=== PATIENT | male | born 1975 | race Caucasian/White ===

== ENCOUNTER → 2019-03-06 08:09 | Outpatient (CLI) | payer OTHER, SELFPAY ==
--- NOTE | 2019-03-06 08:15 | XR_ITS ---
PROCEDURE: XR KNEE RT 4V CLINICAL INDICATION: RT ANTERIOR KNEE PAIN COMPARISON: No exams were available for comparison FINDINGS: No bony or joint abnormality. No fracture or dislocation. IMPRESSION: Negative right knee Dictated by: Elign Singletary MD 03/06/2019 18:47 Signed by: <Electronically signed by Elgin Singletary MD in [place]> 03/06/2019 18:47
== END ==
PROVIDERS: PCP Family Medicine; Visit Provider Family Medicine
DX: M25.561 Pain in right knee (principal)
CPT/HCPCS: 73564

== ENCOUNTER → 2022-10-24 09:11 | Outpatient (CLI) | payer OTHER, SELFPAY ==
--- NOTE | 2022-10-24 09:12 | US_ITS ---
FINAL REPORT CLINICAL HISTORY: pulsation in abdomen FINDINGS: Sonographic images were obtained of the abdominal aorta. The abdominal aorta measures up to 2.4 cm in greatest dimensions. The common iliac arteries are within normal limits. IMPRESSION: No evidence of abdominal aortic aneurysm. Reviewed, Interpreted and Dictated by Willy Payan MD Transcribed by Alli Briseno Authenticated and [facility]
== END ==
PROVIDERS: PCP Physician Assistant; Visit Provider Physician Assistant
DX: R09.89 Other specified symptoms and signs involving the circulatory and respiratory systems (principal)
CPT/HCPCS: 76705

== ENCOUNTER → 2022-11-29 13:24 | Outpatient (POV) | payer OTHER, SELFPAY | PROVIDERS: Visit Provider Dermatology | DX: Z00.00 Encounter for general adult medical examination without abnormal findings (principal) ==

== ENCOUNTER → 2023-04-12 10:08 | Outpatient (CLI) | payer OTHER, SELFPAY ==
[2023-03-22 14:06] LABS: Basophils # 0.1 K/mm3 (0-0.2); Basophils % 0.6 % (0.1-2.0); Eosinophils # 0.4 K/mm3 (0.0-0.4); Eosinophils % 4.7 % (0.1-12.0); Lymphocytes # 2.1 K/mm3 (0.7-4.5); Lymphocytes % 26.5 % (10-50); Mean Corpuscular Hemoglobin 29.2 pg (27.0-31.2); Mean Platelet Volume 8.8 fl (7.4-10.4); Monocytes # 0.6 K/mm3 (0.1-1.0); Neutrophils # 4.8 K/mm3 (1.8-7.8); Neutrophils % 61.1 % (37.0-80.0); Platelet Count 347 K/mm3 (142-424); Red Blood Count 5.81 M/mm3 (4.60-6.20); Red Cell Distribution Width 13.8 % (11.5-17.5); White Blood Count 7.9 K/mm3 (4.8-10.8)
[2023-03-22 14:23] LABS: Alanine Aminotransferase 50 U/L (12-78); Albumin Level 4.7 g/dl (3.5-5.0); Albumin/Globulin Ratio 1.6 (1.1-1.8); Alkaline Phosphatase 105 U/L (38-126); Anion Gap 16.1 mEq/L (5-15); Aspartate Amino Transferase 38 U/L (17-59); Blood Urea Nitrogen 12 mg/dl (9-20); Calcium 9.2 mg/dl (8.4-10.2); Carbon Dioxide 25 mmol/L (22.0-30.0); Chloride 102 mmol/L (98-107); Chol/HDL Ratio 5.4 (1-3.5); Cholesterol 205 mg/dl (140-200); Estimated Glomerular Filt Rate 72 ml/min (>60); GFR (African American) 87 ML/MIN (>60); Globulin 2.9 g/dL (1.3-3.2); Glucose 102 mg/dl (74-100); HDL Cholesterol 38 mg/dl (40-60); Potassium 4.1 mmoL/L (3.5-5.1); Sodium 139 mmol/L (136-145); Total Protein,Serum 7.6 g/dl (6.3-8.2); Triglycerides 145 mg/dl (30-150); VLDL Cholesterol 29 mg/dL (0-40)
[2023-03-22 14:35] LABS: Direct LDL Cholesterol 127.21 mg/dL (100-129)
[2023-03-22 14:40] LABS: 25-OH Vitamin D, Total 34.1 ng/mL (30-100)
[2023-03-22 14:43] LABS: T4 (Thyroxine) 7.4 ug/dl (5.53-11.0)
[2023-03-22 14:53] LABS: Prostate Specific Ag Screen 0.7 ng/ml (0.0-4.0)
[2023-03-22 14:57] LABS: Thyroid Stimulating Hormone 2.56 uIU/mL (0.465-4.68)
[2023-04-01 18:52] LABS: Free Testosterone (Direct) 4.9 pg/mL (6.8-21.5); Testosterone, Total, LC/MS 261.7 ng/dL (264.0-916.0)
== END ==
PROVIDERS: PCP Nurse Practitioner Family; Visit Provider Nurse Practitioner Family
DX: Z00.00 Encounter for general adult medical examination without abnormal findings (principal); Z68.32 Body mass index [BMI] 32.0-32.9, adult; E66.9 Obesity, unspecified; Z12.5 Encounter for screening for malignant neoplasm of prostate; Z79.899 Other long term (current) drug therapy
CPT/HCPCS: 80053; 80061; 82306; 84436; 84443; 85025; G0103

== ENCOUNTER 2023-05-25 11:51 | Day surgery (SDC) | payer OTHER, SELFPAY ==
[2023-05-17 14:57] VITALS: BMI 32.5
[2023-05-25 12:04] VITALS: BP 152/101; PULSE 72; RESP 16; TEMP 36.1; O2SAT 97
--- NOTE | 2023-05-25 12:25 | P.PNANES_ITS ---
[facility] Disclaimer: The information contained in this section may have been updated after the patient was seen, as this information can be updated by other users. Medical History Hypertension Surgical History Hx of vasectomy Family History Other Family history of kidney cancer Family history of myocardial infarction Family history of stroke Social History Smoking Status: Never smoker alcohol intake: current substance use type: denies use current occupational status: employed Travel in the last 8 weeks: None [facility] [place] Anesthesia Checklist Patient Identification Patient Identification: Arm Band Structural Data Admitted From: Home Planned Operative Procedure/s: colonoscopy Consent for Planned Operative Procedure(s) Verified: Yes Verified Documents: Surgical Consent and History and Physical NPO Status Verified Time NPO: 00:00 Additional verifications Anesthesia Reactions: No Airway Assessment Mallampati Score:: Class II C-Spine Mobility Assessed: Yes TMJ Mobility Assessed: Yes Dentition: Good Dentition Neurological Assessment Level of Consciousness: Awake and Alert Anesthesia Plan Anesthesia Risk discussed: Yes Anesthesia Plan: Verified ASA Class: II Anesthesia Type: MAC
[2023-05-25 12:38] VITALS: O2SAT 97
--- NOTE | 2023-05-25 12:53 | HMH.SCOPE ---
Procedure: Date: 05/25/23 Patient Date of :: 1975 Procedure Performed:: Screening colonoscopy Indications:: Colon cancer screening Performing Provider:: Debbie Arcos MD Referring Provider:: Roger Ibrahim APRN Sedation:: Propofol Procedure:: After placing the patient in the left lateral decubitus position, the colonoscopy was gently inserted into the rectum and under direct visualization advanced to the cecum which was identified by transillumination in the right lower quadrant, identification of the ileocecal valve, appendiceal orifice, and cecal strap. Color, texture, mucosa, and anatomy of the colon were carefully examined with the scope. Findings:: Anal canal: normal Rectum: normal Sigmoid colon: normal without polyps or inflammatory changes Descending colon: normal without polyps or inflammatory changes Splenic flexure: normal Transverse colon: normal without polyps or inflammatory changes Hepatic flexure: normal Ascending colon: normal without polyps or inflammatory changes Cecum: normal Terminal ileum: not visualized Impression: Normal colonoscopy Recommendations:: Follow up examination in about TEN years or so, sooner if clinically indicated. Complications:: None Estimated blood obtained (mL): 0 Colonoscopy Component Colonoscopy Component Was a colonoscopy performed during today's procedure?: Yes Recommended follow up colonoscopy of at least 10 years?: Yes
[2023-05-25 12:55] VITALS: BP 98/66; PULSE 87; RESP 16; TEMP 36.1; O2SAT 93
[2023-05-25 13:05] VITALS: BP 91/64; PULSE 72; RESP 18; O2SAT 94
[2023-05-25 13:15] VITALS: BP 119/70; PULSE 80; RESP 18; O2SAT 97
[2023-05-25 13:25] VITALS: BP 113/76; PULSE 61; RESP 18; O2SAT 95
== END 2023-05-25 13:38 | disposition home or self-care (01) ==
PROVIDERS: PCP Nurse Practitioner Family; Visit Provider Internal Medicine Gastroenterology
PROC: 0DJD8ZZ Inspection of Lower Intestinal Tract, Via Natural or Artificial Opening Endoscopic (ICD-10-PCS; CPT 45378; principal; 2023-05-25 13:00)
DX: Z12.11 Encounter for screening for malignant neoplasm of colon (principal)
CPT/HCPCS: 45378

== ENCOUNTER → 2023-07-05 09:57 | Outpatient (CLI) | payer OTHER, SELFPAY ==
--- NOTE | 2023-07-05 10:06 | CT_ITS ---
FINAL REPORT TECHNIQUE: After the administration of IV contrast, axial images through the abdomen was performed by computed tomography. Sagittal and coronal reformatted images were obtained and reviewed. This study was performed with techniques to keep radiation doses as low as reasonably achievable (ALARA). Individualized dose reduction techniques using automated exposure control or adjustment of mA and/or kV according to the patient's size were employed. CLINICAL HISTORY: weight gain, liver issues FINDINGS: The lung bases are clear. There is moderate fatty infiltration of the liver. The gallbladder is contracted. There is a small sliding-type hiatal hernia. The liver, spleen, adrenals, and kidneys are unremarkable. There is no free fluid or adenopathy. IMPRESSION: Moderate fatty liver. Small hiatal hernia. Reviewed, Interpreted and Dictated by Willy Payan MD Transcribed by Lisbeth Quesada Authenticated and [facility]
== END ==
LOC: RAD 09:58
PROVIDERS: PCP Internal Medicine; Visit Provider Internal Medicine
DX: R10.9 Unspecified abdominal pain (principal); R63.5 Abnormal weight gain
CPT/HCPCS: 74150

== ENCOUNTER → 2023-07-05 14:35 | Outpatient (CLI) | payer OTHER, SELFPAY ==
[2023-07-05 12:19] LABS: Basophils % 0.5 % (0.1-2.0); Eosinophils # 0.5 K/mm3 (0.0-0.4); Eosinophils % 6.3 % (0.1-12.0); Hematocrit 49.3 % (42.0-52.0); Lymphocytes # 2.1 K/mm3 (0.7-4.5); Lymphocytes % 25.9 % (10-50); Mean Corpuscular HGB Conc 34.4 g/dL (31.8-35.4); Mean Corpuscular Hemoglobin 29.7 pg (27.0-31.2); Mean Corpuscular Volume 86.1 fl (80-94); Mean Platelet Volume 8.4 fl (7.4-10.4); Monocytes # 0.5 K/mm3 (0.1-1.0); Monocytes % 6.4 % (1.7-9.3); Neutrophils % 60.9 % (37.0-80.0); Platelet Count 299 K/mm3 (142-424); Red Blood Count 5.72 M/mm3 (4.60-6.20); White Blood Count 8.2 K/mm3 (4.8-10.8)
[2023-07-05 12:21] LABS: Chloride 106 mmol/L (98-107); Potassium 4.2 mmoL/L (3.5-5.1); Sodium 139 mmol/L (136-145)
[2023-07-05 12:24] LABS: Alanine Aminotransferase 56 U/L (12-78); Albumin Level 4.6 g/dl (3.5-5.0); Albumin/Globulin Ratio 1.8 (1.1-1.8); Alkaline Phosphatase 95 U/L (38-126); Anion Gap 10.2 mEq/L (5-15); Aspartate Amino Transferase 38 U/L (17-59); Bilirubin,Total 0.7 mg/dl (0.2-1.3); Blood Urea Nitrogen 14 mg/dl (9-20); Carbon Dioxide 27 mmol/L (22.0-30.0); Estimated Glomerular Filt Rate 72 ml/min (>60); GFR (African American) 87 ML/MIN (>60); Globulin 2.6 g/dL (1.3-3.2); Total Protein,Serum 7.2 g/dl (6.3-8.2)
[2023-07-05 12:25] LABS: Calcium 8.5 mg/dl (8.4-10.2); Glucose 104 mg/dl (74-100)
[2023-07-05 12:53] LABS: C-Reactive Protein 0.7 mg/L (0-4)
[2023-07-05 12:55] LABS: Thyroid Stimulating Hormone 2.02 uIU/mL (0.465-4.68)
[2023-07-06 11:20] LABS: HIV Screen 4th Generation wRfx Non Reactive (Non Reactive)
[2023-07-06 13:10] LABS: HBsAg Screen Negative (Negative); HCV Ab Non Reactive (Non Reactive); Hep A Ab, IGM Negative (Negative); Hep B Core Ab, IgM Negative (Negative)
== END ==
PROVIDERS: PCP Internal Medicine; Visit Provider Internal Medicine
DX: R19.8 Other specified symptoms and signs involving the digestive system and abdomen (principal); E66.9 Obesity, unspecified; Z68.33 Body mass index [BMI] 33.0-33.9, adult
CPT/HCPCS: 80053; 80074; 84443; 85025; 86140; 86703; G0432

== ENCOUNTER 2023-08-04 20:02 | Emergency (ER) | payer OTHER, SELFPAY ==
[2023-08-04 20:11] VITALS: BP 142/102; PULSE 105; RESP 19; TEMP 36.4; O2SAT 97; BMI 31.6
[2023-08-04 20:20] VITALS: BP 159/123; PULSE 94; O2SAT 95
[2023-08-04 20:41] VITALS: BP 137/107; PULSE 96; O2SAT 95
[2023-08-04] MEDS: IRBESARTAN 75MG TABLET 75 MG PO (20:44)
--- NOTE | 2023-08-04 20:46 | ED_ITS ---
Discharge Plan Disposition Patient Disposition: Home, Self-Care Prescriptions Prescriptions: New valsartan 80 mg tablet 80 mg PO DAILY Qty: 30 1RF No Action Wegovy 0.25 mg/0.5 mL pen injector 0.25 mg SQ WEEKLY Qty: 2 0RF Rx Instructions: administer weeks 1 through 4 of therapy pantoprazole 40 mg tablet,delayed release (DR/EC) See Rx Instructions .ROUTE .COMPLEX Qty: 30 1RF Dose Instruction: TAKE 1 TABLET BY MOUTH ONCE DAILY Rx Instructions: TAKE 1 TABLET BY MOUTH ONCE DAILY ibuprofen 800 mg tablet 800 mg PO Q8H Qty: 90 2RF lisinopril 5 mg tablet 5 mg PO BID 30 Days Qty: 60 2RF Rx Instructions: take PO BID Referrals Follow up/Referrals: George Adams DO [Primary Care Provider] - See instructions Activity Restrictions/Add. Instructions Additional Instructions/Restrictions: Call your family doctor to establish care for this visit to the emergency department and schedule follow-up within 48 hours to ensure improvement. If you have any worsening of your condition or any other concerning signs or symptoms, return to the emergency department or your primary care doctor for further evaluation. Valsartan 80 mg once daily. If her blood pressure continues to be elevated consistently after for 5 days of valsartan, increase to 160 mg daily. If you notice that food intake continues to affect your swelling and blood pressure, talk to family doctor about adding hydrochlorothiazide (combination valsartan hydrochlorothiazide pill) for blood pressure management as well. Discontinue taking lisinopril. Clinical Impressions Clinical Impression: Hypertension, Vaso vagal episode Discharge ED Provider: Andres Souza General Adult HPI General Chief complaint: Recheck/Abnormal Lab/Rx Stated complaint: HBP , VIDALES, bluured vision Time Seen by Provider: 08/04/23 20:09 Mode of Arrival: Family Vehicle Source of Information: Patient Limitations: No Limitations Description of Symptoms (Recalled from ER Triage Doc. by RN): 48 YO MALE PRESENTS WITH CC OF ELEVATED BP AND ACCOMPANYING DIZZY SPELL PRIOR TO ARRIVAL. ACCORDING TO THE PATIENT HE WAS AT A BASKETBALL GAME AND BECAME HOT AND DIZZY. BP WAS ELEVATED. URGED HIM TO COME IN TO BE EVALUATED BECAUSE OF A PATERNAL PARENT HISTORY OF CVA AND RECENT MED CHANGES WITH HIS ANTIHYPERTENSIVES. ALSO HAD COVID LAST WEEK. History of Present Illness HPI narrative: 48-year-old male history of hypertension presenting with multiple complaints. Patient states that he was at basketball game and was very hot. He began feeling lightheaded, had some vision changes, and did not feel well. Because patient has a history of high blood pressure and they have family with history of stroke, they were concerned about stroke. Brought patient in for further evaluation. Patient not having symptoms on arrival. Related Data Previous Rx's Medication Instructions Recorded pantoprazole 40 mg tablet,delayed See Rx Instructions .Route 05/11/23 release .COMPLEX #30 tabs ibuprofen 800 mg tablet 800 mg PO Q8H #90 tabs 07/03/23 semaglutide (weight loss) 0.25 0.25 mg (0.5 mL) SQ WEEKLY #2 mL 07/05/23 mg/0.5 mL subcutaneous pen injector (Sona) lisinopril 5 mg tablet 5 mg PO BID 30 days #60 tabs 08/01/23 valsartan 80 mg tablet 80 mg PO DAILY #30 tabs 08/04/23 Allergies Allergy/AdvReac Type Severity Reaction Status Date / Time penicillin G AdvReac Verified 07/05/23 08:54 [facility] Disclaimer: The information contained in this section may have been updated after the patient was seen, as this information can be updated by other users. Medical History (Updated 08/04/23 @ 20:51 by Andres Souza MD) Hypertension Surgical History Hx of vasectomy Family History Other Family history of kidney cancer Family history of myocardial infarction Family history of stroke Social History Smoking Status: Unknown if ever smoked alcohol intake: current substance use type: denies use current occupational status: employed Travel in the last 8 weeks: None ROS Obtained: Yes All systems reviewed & no additional complaints except as documented Physical Exam General General appearance: alert and in no apparent distress Head Head exam: atraumatic and normocephalic Eye Eye exam: Present normal appearance, PERRL and EOMI ENT ENT exam: Present mucous membranes moist Neck Neck exam: Present normal inspection, full ROM and trachea midline Respiratory Respiratory exam: Absent respiratory distress, wheezes, stridor, accessory muscle use or prolonged expiratory phase Cardiovascular Cardiovascular exam: Present normal rhythm Abdominal Exam Abdominal exam: Present soft; Absent distention, tenderness, guarding, rebound or rigidity Extremities Exam Extremities exam: Absent edema Neurological Exam Neurological exam: Present alert, oriented X3, CN II-XII intact and normal gait; Absent motor sensory deficit Skin Skin exam: Present warm and dry; Absent diaphoresis or erythema Medical Decision Making Medical Records Medical records reviewed: Yes I reviewed the patient's medical records. Ernesto Inquiry Pt receiving controlled substance: No Ernesto was queried for this patient: No Vital Signs: 08/04/23 20:11 Temperature 97.5 F L Temperature Source Oral Pulse Rate [Right Brachial] 105 H Respiratory Rate 19 Blood Pressure [Right Arm] 142/102 H Blood Pressure Mean [Right Arm] 115 Blood Pressure Source [Right Arm] Automatic Cuff Blood Pressure Position [Right Arm] Sitting 02 Sat by Pulse Oximetry 97 Oxygen Delivery Method Room Air Orders (Tests/Meds): ED MEDICATIONS Discontinued Medications Generic Name Dose Route Start Last Admin Trade Name Tobin PRN Reason Stop Dose Admin Irbesartan 75 mg 08/04/23 20:34 08/04/23 20:44 Irbesartan 75mg Tablet PO 08/04/23 20:35 75 mg ONCE ONE Administration Medical Decision Narrative: 48-year-old male history of hypertension presenting with multiple complaints. Patient states that he was at basketball game and was very hot. He began feeling lightheaded, had some vision changes, and did not feel well. Because patient has a history of high blood pressure and they have family with history of stroke, they were concerned about stroke. Brought patient in for further evaluation. Patient states he has not eaten or drank almost all day. He also states he was using Mounjaro injections, last used about 10 days prior. Currently on 5 mg lisinopril for blood pressure control. Patient not having symptoms on arrival. It should be noted the patient has hypertension is not currently at goal therapy which is complicating care. History was obtained via conversation with . On arrival, patient hemodynamically stable, alert, [oriented x4, ][appropriate, ]GCS [15], moving all extremities spontaneously, pupils equal and reactive to light. Full physical exam performed and significant for neurologically intact and symmetric. Lungs and heart clear to auscultation without extracardiac sounds. Differential includes vasovagal, orthostatic, among others. Patient was given valsartan 80 mg for symptomatic management[ and correction of underlying abnormalities]. Because patient's NIH stroke scale is 0, not currently having symptoms, no chest pain, shortness of breath, well-appearing, deemed appropriate for outpatient management. Because patient at baseline without signs or symptoms of clinical decompensation, deemed appropriate for discharge. Results were relayed to patient[] who voiced understanding and were agreeable to outpatient management and follow up. At the time of discharge the patient was hemodynamically stable, tolerating PO, and mobilizing appropriately. Critical Care Critical Care Time Critical Care Time: No
[2023-08-04 20:59] VITALS: BP 126/93; PULSE 98; O2SAT 95
[2023-08-04 21:00] VITALS: BP 126/93
[2023-08-04 21:04] VITALS: BP 126/93; PULSE 87; RESP 18; TEMP 36.7; O2SAT 96
== END 2023-08-04 21:05 | disposition home or self-care (01) ==
PROVIDERS: Emergency Provider Emergency Medicine; PCP Internal Medicine
DX: R55 Syncope and collapse (principal); I10 Essential (primary) hypertension; H53.8 Other visual disturbances
CPT/HCPCS: 99283

== ENCOUNTER 2023-08-29 07:37 | Outpatient (CLI) | payer OTHER, SELFPAY ==
[2023-08-29 09:00] LABS: Blood Urea Nitrogen 13 mg/dl (9-20); Estimated Glomerular Filt Rate 65 ml/min (>60); GFR (African American) 79 ML/MIN (>60)
[2023-08-30 08:28] VITALS: BP 136/91; PULSE 59; RESP 18; O2SAT 97
--- NOTE | 2023-08-30 08:28 | PC.NURSE ---
Arrived to CT room, /. Nitro 0.8mg SL given per CTA protocol
[2023-08-30 08:33] VITALS: BP 116/64
[2023-08-30 08:37] VITALS: BP 105/57; PULSE 58; O2SAT 98
--- NOTE | 2023-08-30 08:37 | PC.NURSE ---
Test complete, vss, no c/o. to post op for recovery.
[2023-08-30 08:43] VITALS: BP 116/77; PULSE 62; RESP 18; O2SAT 97
--- NOTE | 2023-08-30 08:43 | PC.NURSE ---
Arrived to post op for recovery, pt without c/o. VSS.
[2023-08-30 09:00] VITALS: BP 106/74; PULSE 49; RESP 18; O2SAT 98
[2023-08-30 09:16] VITALS: BP 117/70; PULSE 46; RESP 18; O2SAT 98
--- NOTE | 2023-08-30 09:16 | PC.NURSE ---
Pt doing well, no c/o dizziness or light headedness. verbalized understanding of all instructions.
== END 2023-08-29 23:59 | disposition home or self-care (01) ==
PROVIDERS: PCP Internal Medicine; Visit Provider Internal Medicine
DX: R94.31 Abnormal electrocardiogram [ECG] [EKG] (principal)
CPT/HCPCS: 36415; 82565; 84520

== ENCOUNTER 2023-08-30 07:26 | Outpatient (CLI) | payer OTHER, SELFPAY ==
[2023-08-29 15:04] VITALS: BMI 31.4
--- NOTE | 2023-08-30 07:27 | CT_ITS ---
APPROVED REPORT Launch Manager: CLINICAL INDICATION Chest Pain TECHNIQUE Image Acquisition: A 128 slice MDCT scanner ([employer]mobia View) was used for data acquisition. A noncontrast coronary calcium scan was performed. A CT attenuation threshold of 130 Hounsfield units (HU) was used for the detection of calcium in contiguous voxels of 1 sq mm in area to be counted as individual lesions. Bolus tracking in the ascending aorta with a threshold of 180 HU was performed. Immediately afterwards, ECG synchronized cardiac CT was then performed from the cardiac base to apex using retrospective gating with ECG tube current modulation. A total of 85 mL of Isovue 370 mg/mL contrast medium was administered at 5 mL/sec followed by a saline flush using a biphasic injection protocol. A tube voltage of 120 KVp was used. The patient received the following medications prior to the cardiac CT. 50 mg of oral metoprolol 15 mg of oral ivabradine 0.8 mg of sublingual nitroglycerin The average heart rate at the time of acquisition was 49 bpm and regular. Image Reconstruction Transaxial images were reconstructed at 0.67 mm slide thickness. Data was reviewed interactively on an advanced workstation capable of 2 and 3-dimensional displays in all conventional reconstruction formats, including multiplanar reformations, maximum intensity projections, curved multiplanar reformations, and volume rendered reconstructions. When applicable, selected routine images describing the relevant coronary anatomy and pathology were saved and sent to PACS. Complications None Technical Quality Overall image quality was good. Coronary artery opacification was adequate. Total DLP (Dose-Length Product) is 2131.5 mGy-cm. The reported value represents the total of one or more individual components during the CT acquisition of this date and at this time, and as such, the same value may appear in more than one CT report depending on the interpreting/reporting physicians. COMPARISON None FINDINGS CT Coronary Calcium Scoring LMA (Left Main Artery) = 0 LAD (Left Anterior Descending) = 27 LCX (Left Coronary Circumflex) = 0 RCA (Right Coronary Artery) = 6 Total Calcium Score = 33 using the AJ-130 method. The observed calcium score of 33 is at 87th percentile for subjects of the same age, sex, and race/ethnicity. The interpretation of the calcium heart score is based on the following continuum*: 0 = no calcified plaque detected (risk of coronary artery disease is very low ??? less than 5%) 1-10 = calcium detected in extremely minimal levels (risk of coronary diseases is still low ??? less than 10%) 11-100 = mild levels of plaque detected with certainty (mild or minimal narrowing of heart arteries is likely) 101-400 = definite,at least moderate levels of plaque detected (relatively high risk of a heart attack within 3-5 years) >401-999 = extensive levels of plaque detected (high risk of heart attack, high levels of vascular disease are present, high likelihood of at least one significant coronary narrowing) *The calcium heart score quantifies the burden of coronary calcification/plaque in the coronary arteries. The calcium heart score is not able to evaluate the presence or burden of non-calcified (i.e. soft) plaque. There is no identifiable calcification in the aortic valve, mitral annulus or mitral valve, pericardium, or myocardium. Coronary CT Angiography The coronary arterial system is right dominant. Quantitative Stenosis Grading: Left Main (LM): The left main originates normally from the left sinus of Valsalva. The LM trifurcates into the left anterior descending artery and left circumflex artery. The LM is patent with no evidence of atherosclerosis. Left Anterior Descending (LAD) and Diagonal Branches: The LAD gives off 2 diagonal branches. There is focal calcification in the mid-LAD, but without luminal stenosis. The remainder of the LAD and its branches are patent with no evidence of atherosclerosis. There is no evidence of LAD bridge. Ramus-intermedius (RI): The RI is patent. Left Circumflex (LCX) and Obtuse Marginals (OM): The LCX gives off 2 Obtuse Marginal (OM) branches. The LCX and its branches are patent with no evidence of atherosclerosis. Right Coronary Artery (RCA): The RCA originates normally from the right sinus of Valsalva. The RCA gives off a posterior descending artery (PDA) and posterolateral (PL) branches. There is focal calcification in the proximal RCA, but without luminal stenosis. The remainder of the RCA and its branches are patent with no evidence of atherosclerosis. Non-Coronary Cardiac Findings: Analysis of the left ventricular (LV) structure and function was performed after 3-D reconstruction of the LV from axial images, with user-corrected automatic contouring for assessment of LV volumes and user-defined reconstruction from oblique planes for measurement of 3-D cardiac structure and function. LVEDV: 196 mL LVESV: 90 mL SV: 106 mL LVEF: 54% -The left ventricle is normal in size with normal left ventricular systolic function. -There is no left atrial appendage filling defect. Two right pulmonary veins and two left pulmonary veins drain normally into the left atrium. -No pericardial thickening or calcification. -Central and branch pulmonary arteries in the [id number] are unremarkable. -Thoracic aorta within the visualized thoracic aortic-branches in the [id number] is unremarkable. Extracardiac Structures No significant extra-cardiac findings. Note, however, that this study is focused on the cardiac findings. IMPRESSION -Presence of mild coronary calcification with an Agatston score = 33 using the AJ-130 method. -The observed calcium score of 33 is at 87th percentile for subjects of the same age, sex, and race/ethnicity. -No evidence of significant flow-limiting atherosclerosis of the coronary arteries. -CAD-RADS 1. Management recommendations per ACC/AHA guidelines*, as clinically appropriate. *Recommendations: CAD RADS 0: Reassurance. Consider non-atherosclerotic causes of chest pain. CAD RADS 1: Consider non-atherosclerotic causes of chest pain. Consider preventive therapy and risk factor modification. CAD RADS 2: Consider non-atherosclerotic causes of chest pain. Consider preventive therapy and risk factor modification, particularly for patients with nonobstructive plaque in multiple segments. CAD RADS 3: Consider further functional testing. Consider symptom-guided anti-ischemic and preventive pharmacotherapy as well as risk factor modification per published guideline statements. CAD RADS 4A: Consider further functional testing or invasive coronary angiography with revascularization per published guideline statements. Consider symptom-guided anti-ischemic and preventive pharmacotherapy as well as risk factor modification per published guideline statements. CAD RADS 4B: Invasive coronary angiography recommended with revascularization per published guideline statements. Consider symptom-guided anti-ischemic and preventive pharmacotherapy as well as risk factor modification per published guideline statements. CAD RADS 5: Consider invasive angiography and/or viability assessment with revascularization per published guideline statements. Consider symptom-guided anti-ischemic and preventive pharmacotherapy as well as risk factor modification per published guideline statements. CRITICAL RESULT None COMMUNICATION Per this written report The coronary and cardiac findings of this CCTA were reviewed, reported, and signed by Faisal Mar MD ([employer]) Conclusion Electronically signed by : Reena Mar MD 08/31/2023 12:47:29
[2023-08-30 07:44] VITALS: BP 145/90; PULSE 67; RESP 16; TEMP 36.6; O2SAT 97
[2023-08-30] MEDS: METOPROLOL TARTRATE 50MG TABLET *IVABRADINE+METOPROLOL REGIMINE 50 MG PO (07:47)
[2023-08-30] MEDS: IVABRADINE HCL 7.5MG TABLET *IVABRADINE+METOPROLOL REGIMINE 15 MG PO (07:47)
[2023-08-30] MEDS: 0.9 % SODIUM CHLORIDE 50 ML VIAL IV (10:09)
[2023-08-30] MEDS: IOPAMIDOL-370 (76%);100ML BOTTLE 85 ML IV (10:09)
[2023-08-30] MEDS: SODIUM CHLORIDE 0.9% 10ML SYR (RAD ONLY) 10 ML IV (10:09)
== END 2023-08-30 23:59 ==
LOC: RAD 07:27
PROVIDERS: PCP Internal Medicine; Visit Provider Internal Medicine
DX: R94.31 Abnormal electrocardiogram [ECG] [EKG] (principal); I10 Essential (primary) hypertension; H53.8 Other visual disturbances; E66.9 Obesity, unspecified; Z68.32 Body mass index [BMI] 32.0-32.9, adult
CPT/HCPCS: 75571; 75574; Q9967

== ENCOUNTER 2023-09-13 14:16 | Outpatient (CLI) | payer OTHER, SELFPAY ==
[2023-09-13 15:28] LABS: Alanine Aminotransferase 47 U/L (12-78); Albumin Level 4.5 g/dl (3.5-5.0); Alkaline Phosphatase 77 U/L (38-126); Aspartate Amino Transferase 35 U/L (17-59); Bilirubin,Direct 0.2 mg/dl (0.0-0.4); Bilirubin,Indirect 0.4 mg/dL (0.0-0.9); Bilirubin,Total 0.6 mg/dl (0.2-1.3); Bilirubin,Unconjugated 0.4 mg/dL (0.0-1.1); Chol/HDL Ratio 6.5 (1-3.5); Cholesterol 195 mg/dl (140-200); HDL Cholesterol 30 mg/dl (40-60); Total Protein,Serum 6.8 g/dl (6.3-8.2); Triglycerides 248 mg/dl (30-150); VLDL Cholesterol 50 mg/dL (0-40)
[2023-09-13 15:39] LABS: Direct LDL Cholesterol 119.53 mg/dL (100-129)
== END 2023-09-13 23:59 ==
LOC: LAB 14:17
PROVIDERS: PCP Internal Medicine; Visit Provider Internal Medicine
DX: H53.8 Other visual disturbances (principal); I10 Essential (primary) hypertension; R93.1 Abnormal findings on diagnostic imaging of heart and coronary circulation; R94.31 Abnormal electrocardiogram [ECG] [EKG]; Z82.49 Family history of ischemic heart disease and other diseases of the circulatory system; E78.5 Hyperlipidemia, unspecified; E66.9 Obesity, unspecified; Z68.32 Body mass index [BMI] 32.0-32.9, adult
CPT/HCPCS: 36415; 80061; 80076

== ENCOUNTER 2024-03-20 12:09 | Outpatient (CLI) | payer OTHER, SELFPAY ==
[2024-03-20 08:32] LABS: Basophils # 0.1 K/mm3 (0-0.2); Basophils % 1.1 % (0.1-2.0); Eosinophils # 0.4 K/mm3 (0.0-0.4); Eosinophils % 4.5 % (0.1-12.0); Hemoglobin 17.1 g/dL (14.1-18.0); Lymphocytes # 2.2 K/mm3 (0.7-4.5); Lymphocytes % 26.2 % (10-50); Mean Corpuscular HGB Conc 32.9 g/dL (31.8-35.4); Mean Corpuscular Hemoglobin 29.4 pg (27.0-31.2); Mean Corpuscular Volume 89.5 fl (80-94); Mean Platelet Volume 7.6 fl (7.4-10.4); Monocytes # 0.6 K/mm3 (0.1-1.0); Monocytes % 7.1 % (1.7-9.3); Neutrophils # 5.2 K/mm3 (1.8-7.8); Neutrophils % 61.1 % (37.0-80.0); Platelet Count 345 K/mm3 (142-424); Red Blood Count 5.81 M/mm3 (4.60-6.20); Red Cell Distribution Width 14.1 % (11.5-17.5); White Blood Count 8.4 K/mm3 (4.8-10.8)
[2024-03-20 09:43] LABS: Albumin Level 4.6 g/dl (3.5-5.0); Chloride 103 mmol/L (98-107); Potassium 4.3 mmoL/L (3.5-5.1); Sodium 139 mmol/L (136-145)
[2024-03-20 09:46] LABS: Alanine Aminotransferase 55 U/L (12-78); Albumin/Globulin Ratio 1.7 (1.1-1.8); Alkaline Phosphatase 77 U/L (38-126); Amylase 51 U/L (30-110); Anion Gap 14.3 mEq/L (5-15); Aspartate Amino Transferase 37 U/L (17-59); Blood Urea Nitrogen 18 mg/dl (9-20); Calcium 9.4 mg/dl (8.4-10.2); Carbon Dioxide 26 mmol/L (22.0-30.0); Estimated Glomerular Filt Rate 72 ml/min (>60); GFR (African American) 87 ML/MIN (>60); Globulin 2.7 g/dL (1.3-3.2); Glucose 99 mg/dl (74-100); HDL Cholesterol 36 mg/dl (40-60); Lipase 99 U/L (23-300); Total Protein,Serum 7.3 g/dl (6.3-8.2)
[2024-03-20 09:47] LABS: Chol/HDL Ratio 5.9 (1-3.5); Cholesterol 211 mg/dl (140-200); Triglycerides 137 mg/dl (30-150); VLDL Cholesterol 27 mg/dL (0-40)
[2024-03-20 09:58] LABS: Direct LDL Cholesterol 136.16 mg/dL (100-129)
[2024-03-20 15:18] LABS: Thyroid Stimulating Hormone 2.16 uIU/mL (0.465-4.68)
[2024-03-20 15:37] LABS: Vitamin B12 215 pg/mL (239-931)
[2024-03-20 18:06] LABS: Ferritin 213 ng/ml (17.9-464)
[2024-03-27 09:16] LABS: Free Testosterone (Direct) 9.4 pg/mL (6.8-21.5); Testosterone, Total, LC/MS 356.9 ng/dL (264.0-916.0)
== END 2024-03-20 23:59 | disposition home or self-care (01) ==
LOC: LAB.DROPOF 12:09
PROVIDERS: PCP Nurse Practitioner Family; Visit Provider Nurse Practitioner Family
DX: R14.0 Abdominal distension (gaseous) (principal); E78.5 Hyperlipidemia, unspecified; R53.83 Other fatigue
CPT/HCPCS: 84402; 84403; 80050; 80053; 80061; 82150; 82607; 82728; 83690; 84443; 85025

== ENCOUNTER 2024-03-27 09:11 | Outpatient (CLI) | payer OTHER, SELFPAY ==
--- NOTE | 2024-03-27 09:12 | US_ITS ---
FINAL REPORT CLINICAL HISTORY: fatty liver, abd bloating COMPARISON: None FINDINGS: Sonographic images of the right upper quadrant were obtained. The pancreas is partially obscured. There is a hypoechoic focus in the left hepatic lobe measuring 21 mm in size, that may represent a hepatic cyst. The gallbladder appears normal without evidence of gallstones.There is no evidence of biliary ductal dilatation.The common duct measures 3 mm. Limited images of the right kidney reveal a 12 mm right renal cyst. IMPRESSION: Hypoechoic focus in the left hepatic lobe, 21 mm in size, may represent a hepatic cyst. Recommend CT or MR liver mass protocol examination to confirm. Reviewed, Interpreted and Dictated by Didier Luna III, MD Transcribed by Barbara Ardon Authenticated and [facility]
== END 2024-03-27 23:59 | disposition home or self-care (01) ==
LOC: RAD 09:12
PROVIDERS: PCP Nurse Practitioner Family; Visit Provider Nurse Practitioner Family
DX: R14.0 Abdominal distension (gaseous) (principal); K76.0 Fatty (change of) liver, not elsewhere classified
CPT/HCPCS: 76705

== ENCOUNTER 2024-04-17 08:02 | Outpatient (CLI) | payer OTHER, SELFPAY ==
--- NOTE | 2024-04-17 08:03 | MR_ITS ---
FINAL REPORT CLINICAL HISTORY: liver cyst, renal cyst COMPARISON: Ultrasound dated 03/27/2024 FINDINGS: Multi planar MR imaging of the abdomen was obtained with and without contrast. There is fatty infiltration of the liver. No evidence of liver mass is identified. The gallbladder is present. The spleen and pancreas are unremarkable. There is an 18 mm parapelvic cyst in the lower pole of the right kidney. There is no evidence of solid renal mass. No ascites is identified. IMPRESSION: Fatty liver. No liver mass. Benign right renal cyst. Reviewed, Interpreted and Dictated by Donita Lowe MD Transcribed by Lisbeth Quesada Authenticated and [facility]
[2024-04-17] MEDS: GADOTERIDOL INJ 10ML SYRINGE 2 ML IV (09:19)
[2024-04-17] MEDS: SODIUM CHLORIDE 0.9% 10ML SYR (RAD ONLY) 10 ML IV (09:19)
[2024-04-17] MEDS: GADOTERIDOL INJ 20ML SYRINGE 20 ML IV (09:19)
== END 2024-04-17 23:59 | disposition home or self-care (01) ==
LOC: RAD 08:03
PROVIDERS: PCP Nurse Practitioner Family; Visit Provider Nurse Practitioner Family
DX: K76.0 Fatty (change of) liver, not elsewhere classified (principal); R16.0 Hepatomegaly, not elsewhere classified; N28.1 Cyst of kidney, acquired; R93.5 Abnormal findings on diagnostic imaging of other abdominal regions, including retroperitoneum
CPT/HCPCS: 74183; A9576

== ENCOUNTER 2024-10-09 09:48 | Outpatient (CLI) | payer OTHER, SELFPAY ==
[2024-10-09 13:22] LABS: Hematocrit 49.7 % (42.0-52.0); Hemoglobin 17.2 g/dL (14.1-18.0); Mean Corpuscular Volume 85.5 fl (80-94); Red Blood Count 5.81 M/mm3 (4.60-6.20); White Blood Count 8.3 K/mm3 (4.8-10.8)
[2024-10-09 13:23] LABS: Basophils % 0.5 % (0.1-2.0); Eosinophils # 0.4 K/mm3 (0.0-0.4); Eosinophils % 4.2 % (0.1-12.0); Lymphocytes # 2.3 K/mm3 (0.7-4.5); Lymphocytes % 27.7 % (10-50); Mean Corpuscular HGB Conc 34.6 g/dL (31.8-35.4); Mean Corpuscular Hemoglobin 29.6 pg (27.0-31.2); Mean Platelet Volume 10.1 fl (7.4-10.4); Monocytes # 0.6 K/mm3 (0.1-1.0); Monocytes % 7.1 % (1.7-9.3); Neutrophils % 60.1 % (37.0-80.0); Platelet Count 350 K/mm3 (142-424); Red Cell Distribution Width 13.1 % (11.5-17.5)
[2024-10-09 13:37] LABS: Alanine Aminotransferase 34 U/L (12-78); Albumin Level 5.2 g/dl (3.5-5.0); Albumin/Globulin Ratio 2.3 (1.1-1.8); Alkaline Phosphatase 66 U/L (38-126); Anion Gap 12.2 mEq/L (5-15); Aspartate Amino Transferase 31 U/L (17-59); Bilirubin,Total 0.9 mg/dl (0.2-1.3); Blood Urea Nitrogen 17 mg/dl (9-20); Calcium 10.6 mg/dl (8.4-10.2); Carbon Dioxide 26 mmol/L (22.0-30.0); Chloride 103 mmol/L (98-107); Chol/HDL Ratio 4.9 (1-3.5); Cholesterol 196 mg/dl (140-200); Estimated Glomerular Filt Rate 72 ml/min (>60); GFR (African American) 87 ML/MIN (>60); Globulin 2.3 g/dL (1.3-3.2); Glucose 88 mg/dl (74-100); HDL Cholesterol 40 mg/dl (40-60); Potassium 4.2 mmoL/L (3.5-5.1); Sodium 137 mmol/L (136-145); Total Protein,Serum 7.5 g/dl (6.3-8.2); Triglycerides 142 mg/dl (30-150); VLDL Cholesterol 28 mg/dL (0-40)
[2024-10-09 13:48] LABS: Direct LDL Cholesterol 110.92 mg/dL (100-129)
[2024-10-09 13:57] LABS: Free T4 (Free Thyroxine) 1.28 ng/dl (0.78-2.19)
[2024-10-09 15:38] LABS: Thyroid Stimulating Hormone 1.78 uIU/mL (0.465-4.68)
[2024-10-18 21:12] LABS: Testosterone, Total, LC/MS 366 ng/dL (.)
== END 2024-10-09 23:59 | disposition home or self-care (01) ==
LOC: LAB.DROPOF 10-10 10:33
PROVIDERS: PCP Internal Medicine; Visit Provider Internal Medicine
DX: R53.83 Other fatigue (principal); Z13.29 Encounter for screening for other suspected endocrine disorder; Z13.220 Encounter for screening for lipoid disorders
CPT/HCPCS: 36415; 80053; 80061; 84403; 84439; 84443; 85025